=== PATIENT | male | born 1975 | race Hispanic/Latino ===

== ENCOUNTER 2021-03-15 15:02 | Emergency (ER) | payer OTHER ==
[~2021-03-15] VITALS: Ht 175.3 cm; Wt 96.2 kg
[2021-03-15] MEDS ORDERED: SODIUM CHLORIDE 0.9% 1000ML 1,000 ML IV STA (15:32)
[2021-03-15] MEDS ORDERED: DEXAMETHASONE SOD PHOS INJ 4 MG/ML SDV ONE (15:45)
[2021-03-15] MEDS ORDERED: KETOROLAC TROMETHAMINE 30 MG/ML VIAL IV ONE (15:45)
[2021-03-15] MEDS ORDERED: CEFTRIAXONE 1 GM VIAL ONE (15:45)
[2021-03-15] MEDS ORDERED: DEXAMETHASONE SOD PHOS 10 MG/1 ML VIAL IV ONE (15:45)
[2021-03-15] MEDS ORDERED: CEFTRIAXONE 1 GM VIAL IV ONE (15:45)
[2021-03-15] MEDS ORDERED: SODIUM CHLORIDE 0.9% 1000ML 1,000 ML ONE (15:45)
[2021-03-15] MEDS ORDERED: SODIUM CHLORIDE 0.9% 50ML 50 ML ONE (15:45)
[2021-03-15] MEDS ORDERED: DIPHENHYDRAMINE HCL INJ 50 MG/ML VIAL IV ONE (16:45)
[2021-03-15] MEDS ORDERED: CASIRIVIMAB/IMDEVIMAB 10 ML in SODIUM CHLORIDE 0.9% 100 ML IV ONE (16:45)
[2021-03-15] MEDS ORDERED: CEFDINIR300 MG PO (16:52)
[2021-03-15] MEDS ORDERED: ACETAMINOPHEN-1 EAC3 PO (16:52)
[2021-03-15] MEDS ORDERED: IBUPROFEN IB200 MG PO (16:52)
[2021-03-15] MEDS ORDERED: DIPHENHYDRAMINE HCL INJ 50 MG/ML VIAL ONE (17:02)
[2021-03-15] MEDS ORDERED: SODIUM CHLORIDE 0.9% 100 ML ONE (17:03)
== END 2021-03-15 19:20 | disposition home or self-care (01) ==
LOC: FSED 15:27
DX: R05 Cough (principal); R06.02 Shortness of breath; U07.1 COVID-19; J12.82 Pneumonia due to coronavirus disease 2019
CPT/HCPCS: 71250; 80053; 85025; 96374; 96375; 99284; J0696; J1100 ×2; J1200; J1885; J7030; J7050; U0002

== ENCOUNTER 2021-03-20 10:10 | Emergency (ER) | payer SELFPAY ==
[~2021-03-20] VITALS: Ht 175.3 cm; Wt 96.2 kg
[~2021-03-20 10:10] MED LIST: ACETAMINOPHEN-1 EAC3 PO; CEFDINIR300 MG PO; IBUPROFEN IB200 MG PO
[2021-03-20] MEDS ORDERED: PROVENTIL HFA6.7 GM INH (10:38)
[2021-03-20] MEDS ORDERED: BROMFED DM COU118 ML PO (10:38)
[2021-03-20] MEDS ORDERED: DEXAMETHASONE4 MG PO (10:38)
[2021-03-20] MEDS ORDERED: AZITHROMYCIN250 MG PO (10:38)
== END 2021-03-20 10:45 | disposition home or self-care (01) ==
LOC: ER 10:34
DX: R50.9 Fever, unspecified (principal); R05 Cough; U07.1 COVID-19; J18.9 Pneumonia, unspecified organism
CPT/HCPCS: 99283